=== PATIENT | female | born 1995 | race Caucasian/White ===

== ENCOUNTER 2018-07-24 08:58 | Emergency (ER) | payer OTHER ==
[~2018-07-24] VITALS: Ht 170.2 cm; Wt 71.0 kg
[2018-07-24 09:00] VITALS: BP 126/68
--- NOTE | 2018-07-24 09:20 | PHYS DOC ---
Past Medical History Past Medical History: No Pertinent History Past Surgical History: Tonsillectomy Alcohol Use: Occasionally Drug Use: None Adult General Chief Complaint Chief Complaint: SKIN PROBLEM HPI HPI Patient is a 23 year old female who presents complaining of an abscess/cyst on her left labia that she noted a week ago. Patient states the area has grown bigger, red and very tender to touch. Denies any concerns for STDs. Denies any drainage Review of Systems Review of Systems Constitutional: Denies fever or chills [] Musculoskeletal: Denies back pain or joint pain [] Integument: abscess/cyst on her left labia Neurologic: Denies headache, focal weakness or sensory changes [] All other systems were reviewed and found to be within normal limits, except as documented in this note. Physical Exam Physical Exam Constitutional: Well developed, well nourished, no acute distress, non-toxic appearance. [] Skin: Warm, dry, proximal left labial majora with an indurated area approximately 0.5 x 0.5 cm, the area is warm, tender to touch, forearm. No fluctuance. This appears to be an ingrown hair that is infected. Back: No tenderness, no CVA tenderness. [] Extremities: No tenderness, no cyanosis, no clubbing, ROM intact, no edema. [] Neurologic: Alert and oriented X 3, normal motor function, normal sensory function, no focal deficits noted. [] Psychologic: Affect normal, judgement normal, mood normal. [] Current Patient Data Vital Signs Vital Signs Date Time Temp Pulse Resp B/P (MAP) Pulse Ox O2 Delivery O2 Flow Rate FiO2 07/24/18 09:00 98.1 72 14 126/68 (87) 99 Room Air 98.1 Lab Values Laboratory Tests Test 07/24/18 09:29 POC Urine HCG, Qualitative Hcg negative (Negative) EKG EKG [] Radiology/Procedures Radiology/Procedures [] Course & Med Decision Making Course & Med Decision Making Pertinent Labs and Imaging studies reviewed. (See chart for details) This is a 23-year-old female patient presenting to the ED with an infected ingrown hair on her left proximal labia. Tetanus up-to-date. Discharged with cephalexin and Bactroban. Warm compresses recommended to the area. Instructed not to shave her vaginal area until the infection is cleared up. Instructed follow up with the PCP in 1-2 weeks. Instructed to return to the ED at any point symptoms worsen. Staff Physician Addendum: I was working in the ER during the course of this patient's visit. I was available for consultation as needed, but I was not directly involved in the care of this patient. Dragon Disclaimer Dragon Disclaimer This electronic medical record was generated, in whole or in part, using a voice recognition dictation system. Departure Departure Impression: Primary Impression: Ingrown hair Disposition: HOME, SELF-CARE Condition: STABLE Patient Instructions: Ingrown Hair Additional Instructions: You were evaluated in the emergency room and noted to have an infected ingrown hair. Avoid shaving your pubic area until this infection has cleared up. Apply warm compresses to the area twice a day. Complete your oral antibiotics. Follow- up with your doctor in 1-2 weeks. Come back to the ED at any point symptoms worsen. Scripts Mupirocin Calcium (BACTROBAN CREAM) 15 Gm Cream..g. 1 EMIGDIO TP TID, #30 GM Prov: ESDRAS ESCOBEDO APRN 07/24/18 Cephalexin (CEPHALEXIN) 500 Mg Tablet 1 TAB PO QID, #40 TAB Prov: ESDRAS ESCOBEDO APRN 07/24/18 ESDRAS ESCOBEDO APRN Jul 24, 2018 09:20 MITA YEE MD Jul 24, 2018 09:41
[2018-07-24] MEDS ORDERED: CEPH500T PO (09:24)
[2018-07-24] MEDS ORDERED: MUPI15CR TP (09:24)
== END 2018-07-24 09:43 | disposition home or self-care (01) ==
LOC: ER 08:58
DX: L73.1 Pseudofolliculitis barbae (principal)
CPT/HCPCS: 81025; 99283